=== PATIENT | female | born 1960 | race Two or more races ===

== ENCOUNTER 2022-10-17 06:32 | Inpatient (IN) | payer MEDICARE, MEDICAID ==
[~2022-10-17] VITALS: Ht 154.9 cm; Wt 89.9 kg
[2022-10-17 07:57] LABS: Albumin 1.6 g/dL (3.4-5.0); BUN/Creatinine Ratio 13.5; Calcium 8.1 mg/dL (8.5-10.1)
[2022-10-17 08:00] LABS: Bilirubin, Total 4.7 mg/dL (0.2-1.0); Total Protein 5.7 g/dL (6.4-8.2)
[2022-10-17] MEDS ORDERED: SODIUM CHLORIDE 0.9% 1,000 ML IV ONE (08:00)
[2022-10-17 08:04] LABS: Potassium 2.9 mmol/L (3.5-5.1)
[2022-10-17 08:36] LABS: Basophils # (auto) 0.1 10 ^3/uL (0-0.2); Basophils % (auto) 0.7 % (0.0-2.0); Eosinophils # (auto) 0.4 10 ^3/uL (0-0.8); Eosinophils % (auto) 4.5 % (0.0-7.0); Hematocrit 31.7 % (36.0-46.0); Hemoglobin 10.6 g/dL (12.2-16.2); Lymphocytes % (auto) 22.8 % (10.0-50.0); Mean Corpuscular Hemoglobin 32.1 pg (28.0-32.0); Mean Corpuscular Hgb Conc. 33.4 g/dL (32.0-36.0); Monocytes # (auto) 0.9 10 ^3/uL (0-1.3); Monocytes % (auto) 10.2 % (0.0-12.0); Neutrophils # (auto) 5.3 10 ^3/uL (1.6-8.6); Neutrophils % (auto) 61.8 % (37.0-80.0); Nucleated Red Blood Cells % 0.1 %; Red Cell Distribution Width 19.6 % (11.8-14.3); White Blood Cell 8.6 10^3/uL (4.4-10.8)
[2022-10-17 08:39] LABS: Magnesium 1.7 mg/dL (1.6-2.6)
[2022-10-17] MEDS ORDERED: POTASSIUM EFFERVESENT TAB 25 MEQ PO ONE (08:45)
[2022-10-17] MEDS ORDERED: ONDANSETRON HCL 4 MG/2 ML VIAL ONE (09:20)
[2022-10-17] MEDS ORDERED: ONDANSETRON HCL 4 MG/2 ML VIAL IV ONE (09:30)
[2022-10-17] MEDS ORDERED: ACETAMINOPHEN 325 MG TAB PO PRN (13:30)
[2022-10-17] MEDS ORDERED: FUROSEMIDE 20 MG/2 ML VIAL IV ONE (13:45)
[2022-10-17] MEDS: ALBUMIN 25% 100 ML IV SCH (14:07)
[2022-10-17] MEDS: SODIUM CHLOR 0.9% PF (SALINE LOCK) 10ML VIAL/SYR IV SCH (14:08)
[2022-10-17 14:20] LABS: Sodium Urine 8 mmol/L (40-220)
[2022-10-17 14:29] LABS: Alcohol, Urine < 3.0 mg/dL (0-10); Amphetamine Screen, Urine NEGATIVE (NEGATIVE); Barbiturate Scree,Urine NEGATIVE (NEGATIVE); Benzodiazephine Screen, Urine NEGATIVE (NEGATIVE); Cannabinoid Screen, Urine NEGATIVE (NEGATIVE); Cocaine Screen, Urine NEGATIVE (NEGATIVE); Creatinine, Urine 293 mg/dL (30.0-125.0); Opiate Scree,Urine POSITIVE (NEGATIVE); Phencyclidine Screen, Urine NEGATIVE (NEGATIVE)
[2022-10-17 14:34] LABS: Cholesterol 149 mg/dL (< 200)
[2022-10-17 14:35] LABS: INR 1.75 (0.9-1.15); Partial Thromboplastin Time 35.3 sec (24.6-33.4)
[2022-10-17 14:37] LABS: HDL Cholesterol 38 mg/dL (40-59); LDL Cholesterol 74 mg/dL (< 100); Triglycerides 119 mg/dL (< 150)
[2022-10-17 14:57] LABS: Urine Specific Gravity 1.019 (1.001-1.035)
[2022-10-17 14:58] LABS: Urine Blood 3+ /uL (Negative)
[2022-10-17] MEDS: FUROSEMIDE 40 MG/4 ML VIAL IV SCH (15:30)
[2022-10-17] MEDS: MIDODRINE HCL 10 MG TAB PO SCH (20:01)
[2022-10-17 22:00] VITALS: BP 92/57
[2022-10-18] MEDS ORDERED: MORP15TA PO (00:07)
[2022-10-18] MEDS ORDERED: METH10TA2 PO (00:07)
[2022-10-18] MEDS: SODIUM CHLOR 0.9% PF (SALINE LOCK) 10ML VIAL/SYR IV SCH ×4 (00:41→23:23)
[2022-10-18] MEDS: OCTREOTIDE ACETATE 100 MCG/ML VL SUBCUT SCH ×4 (00:48→23:24)
[2022-10-18] MEDS: ALBUMIN 25% 100 ML IV SCH ×2 (00:49→05:43)
[2022-10-18] MEDS: MORPHINE SULFATE INJ 2 MG/ml SYRG IV PRN (00:51)
[2022-10-18 05:00] VITALS: BP_SYST 100; BP_SYST 85; BP_SYST 99; BP_DIAS 49; BP_DIAS 53; BP_DIAS 62
[2022-10-18] MEDS: MIDODRINE HCL 10 MG TAB PO SCH ×3 (05:43→17:49)
[2022-10-18 06:32] LABS: Albumin 2.3 g/dL (3.4-5.0); BUN/Creatinine Ratio 13.1; Calcium 8.1 mg/dL (8.5-10.1); Potassium 3.4 mmol/L (3.5-5.1)
[2022-10-18 06:34] LABS: Total Protein 5.6 g/dL (6.4-8.2)
[2022-10-18 06:58] LABS: Basophils # (auto) 0 10 ^3/uL (0-0.2); Basophils % (auto) 0.5 % (0.0-2.0); Eosinophils # (auto) 0.3 10 ^3/uL (0-0.8); Eosinophils % (auto) 4.8 % (0.0-7.0); Hematocrit 25.6 % (36.0-46.0); Hemoglobin 8.8 g/dL (12.2-16.2); Lymphocytes # (auto) 1.7 10 ^3/uL (0.4-5.4); Lymphocytes % (auto) 23.9 % (10.0-50.0); Mean Corpuscular Hemoglobin 33.2 pg (28.0-32.0); Mean Corpuscular Hgb Conc. 34.3 g/dL (32.0-36.0); Mean Corpuscular Volume 96.7 fL (80.0-100.0); Monocytes # (auto) 0.9 10 ^3/uL (0-1.3); Monocytes % (auto) 12.3 % (0.0-12.0); Neutrophils # (auto) 4.1 10 ^3/uL (1.6-8.6); Neutrophils % (auto) 58.5 % (37.0-80.0); Nucleated Red Blood Cells % 0.1 %; Red Blood Cells 2.65 10^6/uL (4.0-5.20)
[2022-10-18 08:00] VITALS: BP 85/45
[2022-10-18 09:06] VITALS: BP 103/55
[2022-10-18] MEDS: PANTOPRAZOLE 40 MG/10 ML VIAL INJ IV SCH ×2 (09:48→23:23)
[2022-10-18] MEDS: FUROSEMIDE 40 MG/4 ML VIAL IV SCH ×2 (09:48→11:45)
[2022-10-18] MEDS ORDERED: ENOXAPARIN SOD 30 MG/0.3 ML SYRINGE SC SCH (10:00)
[2022-10-18] MEDS ORDERED: ALBUMIN 25% 100 ML IV ONE (10:15)
[2022-10-18 12:39] VITALS: BP 91/52
[2022-10-18] MEDS ORDERED: ERGOCALCIFEROL 50,000 UNIT(1.25MG) CAP PO SCH (12:45)
[2022-10-18] MEDS ORDERED: FOLIC ACID 1 MG TAB PO ONE (12:45)
[2022-10-18] MEDS ORDERED: MULTIPLE VITAMINS W/ MINERALS TAB PO ONE (12:45)
[2022-10-18] MEDS ORDERED: THIAMINE HCL 100 MG TAB PO ONE (12:45)
[2022-10-18 13:29] LABS: Protein, Urine 143.1 mg/dL (0.0-11.9)
[2022-10-18 14:20] LABS: Hepatitis C Antibody Negative (Negative)
[2022-10-18 14:41] LABS: Hepatitis A Ab IgM Negative; Hepatitis B Core IgM Negative
[2022-10-18 14:42] LABS: Hepatitis C Antibody Negative (Negative)
[2022-10-18 14:48] LABS: Urine Blood 3+ /uL (Negative); Urine Specific Gravity 1.013 (1.001-1.035)
[2022-10-18 14:54] LABS: Urine WBC >100 /hpf (0 - 5)
[2022-10-18 14:55] LABS: Urine Bacteria MODERATE /hpf (None Seen); Urine Ca Carbonate Crystal None Seen /hpf (None Seen)
[2022-10-18 14:56] LABS: Urine Amorphous Sediment None Seen /hpf; Urine Hyaline Cast None Seen /lpf (0 - 2)
[2022-10-18 14:57] LABS: Urine Amorphous Crystal None Seen /hpf (None Seen); Urine Budding Yeast None Seen /hpf (None Seen); Urine Fine Granular Cast None Seen /lpf; Urine Mucus None Seen (None Seen); Urine Sperm None Seen /hpf (None Seen)
[2022-10-18 16:48] VITALS: BP 89/48
[2022-10-18 22:00] VITALS: BP 93/51
[2022-10-18] MEDS ORDERED: LORazepam 2MG/ML-1ML VIAL IV PRN (23:15)
[2022-10-18] MEDS: LACTULOSE 20Gm/30ML SOLN PO SCH (23:23)
[2022-10-19] VITALS (9 sets, daily range): BP systolic 97–117; BP diastolic 47–69
[2022-10-19] MEDS: cefTRIAXone 1GM/50ML D5W 50 ML IV SCH ×2 (00:12→23:39)
[2022-10-19] MEDS: LACTULOSE 20Gm/30ML SOLN PO SCH ×6 (01:51→23:38)
[2022-10-19] MEDS: SODIUM CHLOR 0.9% PF (SALINE LOCK) 10ML VIAL/SYR IV SCH ×3 (05:43→23:40)
[2022-10-19] MEDS: MIDODRINE HCL 10 MG TAB PO SCH ×3 (05:44→18:42)
[2022-10-19 05:57] LABS: Hematocrit 24.2 % (36.0-46.0)
[2022-10-19 06:00] LABS: Hemoglobin 8.2 g/dL (12.2-16.2); Mean Corpuscular Hemoglobin 32.7 pg (28.0-32.0); Mean Corpuscular Hgb Conc. 33.9 g/dL (32.0-36.0); Mean Corpuscular Volume 96.6 fL (80.0-100.0); Red Blood Cells 2.51 10^6/uL (4.0-5.20); White Blood Cell 11.2 10^3/uL (4.4-10.8)
[2022-10-19 06:11] LABS: Calcium 8.3 mg/dL (8.5-10.1); Potassium 3.4 mmol/L (3.5-5.1)
[2022-10-19 06:17] LABS: Albumin 2.6 g/dL (3.4-5.0); BUN/Creatinine Ratio 12.2; Bilirubin, Total 6.2 mg/dL (0.2-1.0); Magnesium 1.7 mg/dL (1.6-2.6); Total Protein 5.3 g/dL (6.4-8.2)
[2022-10-19] MEDS: OCTREOTIDE ACETATE 100 MCG/ML VL SUBCUT SCH ×2 (06:21→16:29)
[2022-10-19 07:04] LABS: INR 2.1 (0.9-1.15)
[2022-10-19 07:28] LABS: Band Neutrophils % (manual) 0; Basophils % (manual) 0 (0.0-2.0); Blast Cells 0; Metamyelocytes % 0; Myelocytes % 0; Promyelocytes % 0; Reactive Lymphocytes 0
[2022-10-19] MEDS ORDERED: POTASSIUM CHL 20 Meq TABLET PO ONE (08:00)
[2022-10-19] MEDS ORDERED: PHYTONADIONE(VitK) ORAL Susp 5mg/5ml(1mg/ml) PO ONE (08:00)
[2022-10-19 11:57] LABS: Eosinophils % (manual) 7 (0-7); Lymphocytes % (manual) 26 (10.0-50.0); Monocytes % (manual) 15 (0-12)
[2022-10-19 12:46] LABS: Folate (Folic Acid) 2.39 ng/mL (5.38-24)
[2022-10-19] MEDS: FUROSEMIDE 40 MG/4 ML VIAL IV SCH (12:59)
[2022-10-19] MEDS: PANTOPRAZOLE 40 MG/10 ML VIAL INJ IV SCH ×2 (13:00→23:38)
[2022-10-19] MEDS: THIAMINE HCL 100 MG TAB PO SCH (13:00)
[2022-10-19] MEDS: MULTIPLE VITAMINS W/ MINERALS TAB PO SCH (13:00)
[2022-10-19] MEDS: FOLIC ACID 1 MG TAB PO SCH (13:00)
[2022-10-20] MEDS: OCTREOTIDE ACETATE 100 MCG/ML VL SUBCUT SCH ×6 (00:03→21:39)
[2022-10-20] MEDS: cefTRIAXone 1GM/50ML D5W 50 ML IV SCH ×2 (00:29→21:37)
[2022-10-20] MEDS: LACTULOSE 20Gm/30ML SOLN PO SCH ×7 (02:12→21:37)
[2022-10-20 05:00] VITALS: BP 108/44
[2022-10-20] MEDS: MIDODRINE HCL 10 MG TAB PO SCH ×4 (06:00→19:00)
[2022-10-20 06:15] LABS: INR 2.05 (0.9-1.15); Partial Thromboplastin Time 39.3 sec (24.6-33.4)
[2022-10-20 06:25] LABS: Potassium 3.1 mmol/L (3.5-5.1)
[2022-10-20] MEDS: SODIUM CHLOR 0.9% PF (SALINE LOCK) 10ML VIAL/SYR IV SCH ×3 (06:26→21:42)
[2022-10-20 06:38] LABS: Albumin 2.4 g/dL (3.4-5.0); BUN/Creatinine Ratio 11.2; Calcium 8.3 mg/dL (8.5-10.1); Magnesium 1.5 mg/dL (1.6-2.6)
[2022-10-20 06:41] LABS: Bilirubin, Total 5.7 mg/dL (0.2-1.0); Total Protein 4.8 g/dL (6.4-8.2)
[2022-10-20 07:01] LABS: Basophils # (auto) 0.1 10 ^3/uL (0-0.2); Monocytes # (auto) 1.3 10 ^3/uL (0-1.3); Red Blood Cells 2.46 10^6/uL (4.0-5.20)
[2022-10-20 07:03] LABS: Eosinophils # (auto) 0.5 10 ^3/uL (0-0.8); Eosinophils % (auto) 4.9 % (0.0-7.0); Hematocrit 24.1 % (36.0-46.0); Hemoglobin 8.1 g/dL (12.2-16.2); Lymphocytes # (auto) 2.6 10 ^3/uL (0.4-5.4); Lymphocytes % (auto) 25.2 % (10.0-50.0); Mean Corpuscular Hemoglobin 33.1 pg (28.0-32.0); Mean Corpuscular Hgb Conc. 33.8 g/dL (32.0-36.0); Mean Corpuscular Volume 97.9 fL (80.0-100.0); Neutrophils # (auto) 5.8 10 ^3/uL (1.6-8.6); Neutrophils % (auto) 55.9 % (37.0-80.0); Nucleated Red Blood Cells % 0.2 %; Red Cell Distribution Width 19.2 % (11.8-14.3); White Blood Cell 10.3 10^3/uL (4.4-10.8)
[2022-10-20 09:00] VITALS: BP 122/67
[2022-10-20] MEDS: MULTIPLE VITAMINS W/ MINERALS TAB PO SCH (09:51)
[2022-10-20] MEDS: PANTOPRAZOLE 40 MG/10 ML VIAL INJ IV SCH ×2 (09:51→21:37)
[2022-10-20] MEDS: FOLIC ACID 1 MG TAB PO SCH (09:51)
[2022-10-20] MEDS: THIAMINE HCL 100 MG TAB PO SCH (09:51)
[2022-10-20] MEDS: FUROSEMIDE 40 MG/4 ML VIAL IV SCH (09:51)
[2022-10-20] MEDS: SPIRONOLACTONE 25 MG TAB PO SCH (09:52)
[2022-10-20 13:00] VITALS: BP 105/55
[2022-10-20] MEDS ORDERED: POTASSIUM CHL 20 Meq TABLET PO ONE (15:00)
[2022-10-20 17:00] VITALS: BP 113/56
[2022-10-20 21:55] VITALS: BP 125/59
[2022-10-21] VITALS (9 sets, daily range): BP systolic 91–125; BP diastolic 49–75
[2022-10-21] MEDS: LACTULOSE 20Gm/30ML SOLN PO SCH ×6 (02:09→23:00)
[2022-10-21] MEDS: OCTREOTIDE ACETATE 100 MCG/ML VL SUBCUT SCH ×3 (05:42→23:02)
[2022-10-21] MEDS: MIDODRINE HCL 10 MG TAB PO SCH ×2 (05:42→12:25)
[2022-10-21] MEDS: SODIUM CHLOR 0.9% PF (SALINE LOCK) 10ML VIAL/SYR IV SCH ×3 (05:46→23:00)
[2022-10-21 06:17] LABS: INR 2.07 (0.9-1.15); Partial Thromboplastin Time 36.5 sec (24.6-33.4)
[2022-10-21 06:32] LABS: Basophils # (auto) 0.1 10 ^3/uL (0-0.2); Basophils % (auto) 1.5 % (0.0-2.0); Eosinophils # (auto) 0.5 10 ^3/uL (0-0.8); Eosinophils % (auto) 5.8 % (0.0-7.0); Hematocrit 26.1 % (36.0-46.0); Hemoglobin 8.8 g/dL (12.2-16.2); Lymphocytes # (auto) 2.7 10 ^3/uL (0.4-5.4); Lymphocytes % (auto) 28.9 % (10.0-50.0); Mean Corpuscular Hemoglobin 33.4 pg (28.0-32.0); Mean Corpuscular Hgb Conc. 33.7 g/dL (32.0-36.0); Mean Corpuscular Volume 99.1 fL (80.0-100.0); Monocytes # (auto) 1.3 10 ^3/uL (0-1.3); Monocytes % (auto) 13.4 % (0.0-12.0); Neutrophils # (auto) 4.7 10 ^3/uL (1.6-8.6); Neutrophils % (auto) 50.4 % (37.0-80.0); Nucleated Red Blood Cells % 0.2 %; Red Blood Cells 2.63 10^6/uL (4.0-5.20); Red Cell Distribution Width 19.2 % (11.8-14.3); White Blood Cell 9.4 10^3/uL (4.4-10.8)
[2022-10-21 06:56] LABS: Potassium 3.3 mmol/L (3.5-5.1)
[2022-10-21 06:58] LABS: BUN/Creatinine Ratio 11.4
[2022-10-21 07:02] LABS: Bilirubin, Total 4.9 mg/dL (0.2-1.0); Calcium 8.3 mg/dL (8.5-10.1)
[2022-10-21 07:03] LABS: Albumin 2.5 g/dL (3.4-5.0); Magnesium 1.6 mg/dL (1.6-2.6); Total Protein 5.2 g/dL (6.4-8.2)
[2022-10-21] MEDS: FUROSEMIDE 40 MG/4 ML VIAL IV SCH (10:16)
[2022-10-21] MEDS: MULTIPLE VITAMINS W/ MINERALS TAB PO SCH (10:16)
[2022-10-21] MEDS: PANTOPRAZOLE 40 MG/10 ML VIAL INJ IV SCH ×2 (10:16→23:00)
[2022-10-21] MEDS: SPIRONOLACTONE 25 MG TAB PO SCH (10:16)
[2022-10-21] MEDS: FOLIC ACID 1 MG TAB PO SCH (10:16)
[2022-10-21] MEDS: THIAMINE HCL 100 MG TAB PO SCH (10:17)
[2022-10-21] MEDS ORDERED: POTASSIUM EFFERVESENT TAB 25 MEQ PO ONE (10:45)
[2022-10-21] MEDS: MORPHINE SULFATE INJ 2 MG/ml SYRG IV PRN (11:14)
[2022-10-21] MEDS ORDERED: POTASSIUM CHL 20 Meq TABLET PO ONE (14:00)
[2022-10-21] MEDS ORDERED: PHYTONADIONE (VIT K)10 MG/ML 1ML VIAL SUBCUT ONE (14:00)
[2022-10-21] MEDS ORDERED: MAGNESIUM OXIDE 400 MG TAB PO ONE (14:00)
[2022-10-21] MEDS: cefTRIAXone 1GM/50ML D5W 50 ML IV SCH (23:00)
[2022-10-21] MEDS: MAGNESIUM OXIDE 400 MG TAB PO SCH (23:00)
[2022-10-22 00:06] VITALS: BP 98/59
[2022-10-22] MEDS: LACTULOSE 20Gm/30ML SOLN PO SCH ×6 (02:00→22:00)
[2022-10-22 04:47] VITALS: BP 96/56
[2022-10-22] MEDS: MIDODRINE HCL 10 MG TAB PO SCH ×3 (05:36→18:09)
[2022-10-22] MEDS: SODIUM CHLOR 0.9% PF (SALINE LOCK) 10ML VIAL/SYR IV SCH ×3 (05:36→22:27)
[2022-10-22] MEDS: OCTREOTIDE ACETATE 100 MCG/ML VL SUBCUT SCH ×3 (05:37→22:00)
[2022-10-22] MEDS: MORPHINE SULFATE INJ 2 MG/ml SYRG IV PRN (08:33)
[2022-10-22] MEDS: FUROSEMIDE 40 MG/4 ML VIAL IV SCH (09:50)
[2022-10-22] MEDS: SPIRONOLACTONE 25 MG TAB PO SCH (09:50)
[2022-10-22] MEDS: PANTOPRAZOLE 40 MG/10 ML VIAL INJ IV SCH ×2 (09:50→22:27)
[2022-10-22] MEDS: MAGNESIUM OXIDE 400 MG TAB PO SCH ×2 (09:51→22:27)
[2022-10-22] MEDS: MULTIPLE VITAMINS W/ MINERALS TAB PO SCH (09:51)
[2022-10-22] MEDS: THIAMINE HCL 100 MG TAB PO SCH (09:52)
[2022-10-22] MEDS: FOLIC ACID 1 MG TAB PO SCH (09:53)
[2022-10-22] MEDS ORDERED: POTASSIUM EFFERVESENT TAB 25 MEQ PO ONE (10:00)
[2022-10-22 10:33] LABS: INR 1.99 (0.9-1.15)
[2022-10-22 10:38] LABS: Basophils # (auto) 0 10 ^3/uL (0-0.2); Basophils % (auto) 0.7 % (0.0-2.0); Eosinophils # (auto) 0.5 10 ^3/uL (0-0.8); Eosinophils % (auto) 7.2 % (0.0-7.0); Hematocrit 26.7 % (36.0-46.0); Hemoglobin 9.1 g/dL (12.2-16.2); Lymphocytes # (auto) 1.3 10 ^3/uL (0.4-5.4); Lymphocytes % (auto) 19.7 % (10.0-50.0); Mean Corpuscular Hemoglobin 33.1 pg (28.0-32.0); Mean Corpuscular Volume 97.5 fL (80.0-100.0); Monocytes # (auto) 0.8 10 ^3/uL (0-1.3); Monocytes % (auto) 12.8 % (0.0-12.0); Neutrophils # (auto) 3.8 10 ^3/uL (1.6-8.6); Neutrophils % (auto) 59.6 % (37.0-80.0); Nucleated Red Blood Cells % 0.1 %; Red Blood Cells 2.74 10^6/uL (4.0-5.20); White Blood Cell 6.4 10^3/uL (4.4-10.8)
[2022-10-22 10:47] LABS: Albumin 2.3 g/dL (3.4-5.0); BUN/Creatinine Ratio 10.3; Calcium 8.4 mg/dL (8.5-10.1); Magnesium 1.7 mg/dL (1.6-2.6)
[2022-10-22 10:50] LABS: Bilirubin, Total 3.7 mg/dL (0.2-1.0); Total Protein 5.3 g/dL (6.4-8.2)
[2022-10-22 11:23] LABS: Potassium 2.9 mmol/L (3.5-5.1)
[2022-10-22] MEDS ORDERED: ONDANSETRON HCL 4 MG/2 ML VIAL IV PRN (12:45)
[2022-10-22] MEDS ORDERED: ONDANSETRON HCL 4 MG/2 ML VIAL ONE (12:57)
[2022-10-22 13:00] VITALS: BP 128/74
[2022-10-22] MEDS ORDERED: PHYTONADIONE(VitK) ORAL Susp 10mg/10ml(1mg/ml) PO ONE ×2 (13:15→15:45)
[2022-10-22] MEDS ORDERED: MAGNESIUM OXIDE 400 MG TAB PO ONE (13:15)
[2022-10-22] MEDS ORDERED: POTASSIUM CHLORIDE 40 MEQ, LIDOCAINE 1% (LOCAL ANESTH.) 4 ML in SODIUM CHL 0.9% 250 ML IV ONE ×2 (13:15→16:00)
[2022-10-22 17:00] VITALS: BP 107/58
[2022-10-22 21:42] VITALS: BP 112/59
[2022-10-22] MEDS: cefTRIAXone 1GM/50ML D5W 50 ML IV SCH (22:27)
[2022-10-23] VITALS (7 sets, daily range): BP systolic 101–117; BP diastolic 58–61
[2022-10-23] MEDS: ALBUMIN 25% 50 ML IV SCH ×2 (01:01→10:36)
[2022-10-23] MEDS: LACTULOSE 20Gm/30ML SOLN PO SCH ×5 (02:00→18:00)
[2022-10-23] MEDS: OCTREOTIDE ACETATE 100 MCG/ML VL SUBCUT SCH ×2 (06:00→14:41)
[2022-10-23] MEDS: SODIUM CHLOR 0.9% PF (SALINE LOCK) 10ML VIAL/SYR IV SCH ×2 (06:32→14:46)
[2022-10-23] MEDS: MIDODRINE HCL 10 MG TAB PO SCH ×3 (06:36→18:00)
[2022-10-23 06:47] LABS: Potassium 3.1 mmol/L (3.5-5.1)
[2022-10-23 06:52] LABS: INR 1.89 (0.9-1.15); Partial Thromboplastin Time 37.4 sec (24.6-33.4)
[2022-10-23 06:56] LABS: Albumin 2.2 g/dL (3.4-5.0); BUN/Creatinine Ratio 9.2; Calcium 7.9 mg/dL (8.5-10.1); Magnesium 1.7 mg/dL (1.6-2.6)
[2022-10-23 06:59] LABS: Bilirubin, Total 3.4 mg/dL (0.2-1.0); Total Protein 4.7 g/dL (6.4-8.2)
[2022-10-23] MEDS ORDERED: POTASSIUM CHL 20 Meq TABLET PO ONE (09:00)
[2022-10-23] MEDS: MAGNESIUM SULFATE 1GM/100ML 100 ML IV SCH ×2 (09:17→09:26)
[2022-10-23] MEDS: FUROSEMIDE 40 MG/4 ML VIAL IV SCH (09:17)
[2022-10-23] MEDS: PANTOPRAZOLE 40 MG/10 ML VIAL INJ IV SCH (09:18)
[2022-10-23] MEDS: SPIRONOLACTONE 25 MG TAB PO SCH (09:18)
[2022-10-23] MEDS: FOLIC ACID 1 MG TAB PO SCH (09:19)
[2022-10-23] MEDS: THIAMINE HCL 100 MG TAB PO SCH (09:19)
[2022-10-23] MEDS: MAGNESIUM OXIDE 400 MG TAB PO SCH (09:19)
[2022-10-23] MEDS: MULTIPLE VITAMINS W/ MINERALS TAB PO SCH (09:20)
[2022-10-23] MEDS ORDERED: MAGNESIUM OXIDE 400 MG TAB PO SCH (10:00)
[2022-10-23 10:20] LABS: Basophils # (auto) 0 10 ^3/uL (0-0.2); Basophils % (auto) 0.7 % (0.0-2.0); Eosinophils # (auto) 0.4 10 ^3/uL (0-0.8); Eosinophils % (auto) 5.1 % (0.0-7.0); Hematocrit 25.1 % (36.0-46.0); Hemoglobin 8.7 g/dL (12.2-16.2); Lymphocytes # (auto) 1.7 10 ^3/uL (0.4-5.4); Lymphocytes % (auto) 24.5 % (10.0-50.0); Mean Corpuscular Hemoglobin 33.6 pg (28.0-32.0); Mean Corpuscular Hgb Conc. 34.4 g/dL (32.0-36.0); Mean Corpuscular Volume 97.6 fL (80.0-100.0); Monocytes # (auto) 0.8 10 ^3/uL (0-1.3); Monocytes % (auto) 11.1 % (0.0-12.0); Neutrophils # (auto) 4.1 10 ^3/uL (1.6-8.6); Neutrophils % (auto) 58.6 % (37.0-80.0); Nucleated Red Blood Cells % 0.2 %; Red Blood Cells 2.58 10^6/uL (4.0-5.20); Red Cell Distribution Width 19.2 % (11.8-14.3); White Blood Cell 6.9 10^3/uL (4.4-10.8)
[2022-10-23] MEDS ORDERED: PRIMIDONE 50 MG TAB PO SCH (22:00)
== END 2022-10-23 18:35 | DRG 441 ==
LOC: ER 06:32 → OVERFLOW 13:31 → WEST WING 21:45
PROVIDERS: ADMIT Nurse Practitioner Family; ATTEND Internal Medicine
PROC: 30233K1 Transfusion of Nonautologous Frozen Plasma into Peripheral Vein, Percutaneous Approach (ICD-10-PCS; principal; 2022-10-19)
DX: K76.7 Hepatorenal syndrome (principal); E43 Unspecified severe protein-calorie malnutrition; G93.41 Metabolic encephalopathy; N17.0 Acute kidney failure with tubular necrosis; N18.4 Chronic kidney disease, stage 4 (severe); D68.4 Acquired coagulation factor deficiency; E87.20 Acidosis, unspecified; J98.11 Atelectasis; N39.0 Urinary tract infection, site not specified; K70.40 Alcoholic hepatic failure without coma; K76.82 Hepatic encephalopathy; K74.60 Unspecified cirrhosis of liver; D63.1 Anemia in chronic kidney disease; F17.210 Nicotine dependence, cigarettes, uncomplicated; E86.9 Volume depletion, unspecified; E66.01 Morbid (severe) obesity due to excess calories; Z20.822 Contact with and (suspected) exposure to COVID-19; I12.9 Hypertensive chronic kidney disease with stage 1 through stage 4 chronic kidney disease, or unspecified chronic kidney disease; G25.0 Essential tremor; I95.9 Hypotension, unspecified; R73.9 Hyperglycemia, unspecified; E55.9 Vitamin D deficiency, unspecified; E87.70 Fluid overload, unspecified; E87.6 Hypokalemia; N28.1 Cyst of kidney, acquired; M79.7 Fibromyalgia; Z82.49 Family history of ischemic heart disease and other diseases of the circulatory system; Z88.6 Allergy status to analgesic agent; Z98.84 Bariatric surgery status; Z68.38 Body mass index [BMI] 38.0-38.9, adult
CPT/HCPCS: 36415; 71045; 74176; 76705; 80053; 80061; 80074; 80307; 81001; 81003; 82105; 82140; 82248; 82306; 82570; 82607; 82746; 83036; 83540; 83550; 83605; 83615; 83690; 83735; 83880; 83930; 83935; 83986; 84155; 84156; 84165; 84300; 84443; 84484; 85007; 85025; 85027; 85045; 85610; 85730; 86803; 86850; 86900; 86901; 87205; 87340; 87426; 89051; 93005; 93306; 93886; 93970; 95819; 96361; 96365; 96375; 97110; 97116; 97163; 97530; C9113; G0378; J0696; J2001; J2405; J3430; P9047

== ENCOUNTER 2022-10-26 09:45 | Emergency (ER) | payer MEDICARE, MEDICAID ==
[~2022-10-26] VITALS: Ht 160 cm; Wt 84.1 kg
[~2022-10-26 09:45] MED LIST: METH10TA2 PO; MORP15TA PO
[2022-10-26] MEDS ORDERED: PIPERACILLIN-TAZOB 3.375GM 100 ML IV ONE (15:00)
[2022-10-26] MEDS ORDERED: LIDOCAINE 1% HCL (LOCAL ANESTH.) INJ 20ML MDV ID ONE (15:15)
[2022-10-26 15:57] VITALS: BP 104/49
== END 2022-10-26 15:57 | disposition home or self-care (01) ==
LOC: EDBD 09:45 → ER 09:45
DX: R10.9 Unspecified abdominal pain (principal); I10 Essential (primary) hypertension; F17.210 Nicotine dependence, cigarettes, uncomplicated; Z48.00 Encounter for change or removal of nonsurgical wound dressing; Z88.6 Allergy status to analgesic agent
CPT/HCPCS: 96365; 99284; J2001; J2543

== ENCOUNTER 2022-10-30 10:27 | Inpatient (IN) | payer MEDICARE, MEDICAID ==
[~2022-10-30] VITALS: Ht 157.5 cm; Wt 100.2 kg
[2022-10-30 11:55] LABS: Basophils # (auto) 0.1 10 ^3/uL (0-0.2); Basophils % (auto) 0.6 % (0.0-2.0); Eosinophils # (auto) 0.5 10 ^3/uL (0-0.8); Hemoglobin 9.8 g/dL (12.2-16.2); Lymphocytes # (auto) 1.9 10 ^3/uL (0.4-5.4); Lymphocytes % (auto) 18.4 % (10.0-50.0); Mean Corpuscular Hemoglobin 32.8 pg (28.0-32.0); Mean Corpuscular Hgb Conc. 32.7 g/dL (32.0-36.0); Mean Corpuscular Volume 100.1 fL (80.0-100.0); Monocytes % (auto) 9.4 % (0.0-12.0); Neutrophils % (auto) 66.6 % (37.0-80.0); Nucleated Red Blood Cells % 0.2 %; Red Blood Cells 2.99 10^6/uL (4.0-5.20); Red Cell Distribution Width 17.8 % (11.8-14.3); White Blood Cell 10.5 10^3/uL (4.4-10.8)
[2022-10-30 12:10] LABS: Albumin 2.2 g/dL (3.4-5.0); Calcium 8.1 mg/dL (8.5-10.1); Potassium 3.5 mmol/L (3.5-5.1)
[2022-10-30 12:12] LABS: BUN/Creatinine Ratio 10.4; Lactic Acid w/Reflex 2.3 mmol/L (0.4-2.0)
[2022-10-30 12:15] LABS: Bilirubin, Total 5.5 mg/dL (0.2-1.0); Total Protein 5.6 g/dL (6.4-8.2)
[2022-10-30 12:17] LABS: INR 1.56 (0.9-1.15); Partial Thromboplastin Time 34.2 sec (24.6-33.4)
[2022-10-30] MEDS ORDERED: LACTULOSE 20Gm/30ML SOLN PO ONE (12:30)
[2022-10-30] MEDS ORDERED: FUROSEMIDE 40 MG/4 ML VIAL IV ONE (15:15)
[2022-10-31] MEDS: LACTULOSE 20Gm/30ML SOLN PO SCH ×5 (01:11→22:18)
[2022-10-31] MEDS: SODIUM CHLOR 0.9% PF (SALINE LOCK) 10ML VIAL/SYR IV SCH ×4 (01:11→22:12)
[2022-10-31 06:24] LABS: Hematocrit 23.3 % (36.0-46.0); Hemoglobin 8.2 g/dL (12.2-16.2); Mean Corpuscular Hemoglobin 34.5 pg (28.0-32.0); Mean Corpuscular Hgb Conc. 35.1 g/dL (32.0-36.0); Mean Corpuscular Volume 98.3 fL (80.0-100.0); Red Blood Cells 2.37 10^6/uL (4.0-5.20); Red Cell Distribution Width 17.4 % (11.8-14.3); White Blood Cell 12.9 10^3/uL (4.4-10.8)
[2022-10-31 06:35] LABS: Basophils % (manual) 0 (0.0-2.0); Blast Cells 0; Metamyelocytes % 0; Promyelocytes % 0; Reactive Lymphocytes 0
[2022-10-31 07:18] LABS: BUN/Creatinine Ratio 10.9; Bilirubin, Total 5.1 mg/dL (0.2-1.0); Calcium 7.8 mg/dL (8.5-10.1); Total Protein 4.9 g/dL (6.4-8.2)
[2022-10-31 09:39] LABS: Band Neutrophils % (manual) 11; Eosinophils % (manual) 5 (0-7); Lymphocytes % (manual) 22 (10.0-50.0); Monocytes % (manual) 14 (0-12); Myelocytes % 1
[2022-10-31] MEDS ORDERED: FUROSEMIDE 20 MG/2 ML VIAL IV SCH (10:00)
[2022-10-31 11:42] LABS: Urine Bacteria NONE SEEN /hpf (None Seen); Urine Blood 3+ /uL (Negative); Urine Budding Yeast MANY /hpf (None Seen); Urine Hyaline Cast MANY /lpf (0 - 2); Urine Mucus FEW (None Seen); Urine Specific Gravity 1.013 (1.001-1.035); Urine WBC 129 /hpf (0 - 5); Urine WBC Clumps PRESENT /hpf (None Seen)
[2022-10-31] MEDS ORDERED: MIDODRINE HCL 10 MG TAB PO ONE (14:15)
[2022-10-31] MEDS ORDERED: cefTRIAXone 1GM/50ML D5W 50 ML IV ONE (14:15)
[2022-10-31] MEDS ORDERED: PANTOPRAZOLE 40 MG TAB PO ONE (14:15)
[2022-10-31] MEDS ORDERED: ALBUMIN 25% 50 ML IV ONE (14:15)
[2022-10-31] MEDS ORDERED: FUROSEMIDE 40 MG/4 ML VIAL IV ONE (14:15)
[2022-10-31] MEDS: MIDODRINE HCL 10 MG TAB PO SCH (18:06)
[2022-10-31] MEDS ORDERED: FOLI1TAB6 PO (23:36)
[2022-10-31 23:46] VITALS: BP 107/36
[2022-11-01] VITALS (8 sets, daily range): BP systolic 76–112; BP diastolic 29–53
[2022-11-01] MEDS: LACTULOSE 20Gm/30ML SOLN PO SCH ×3 (06:16→22:09)
[2022-11-01] MEDS: MIDODRINE HCL 10 MG TAB PO SCH ×3 (06:16→17:53)
[2022-11-01] MEDS: SODIUM CHLOR 0.9% PF (SALINE LOCK) 10ML VIAL/SYR IV SCH ×3 (06:16→22:08)
[2022-11-01 06:32] LABS: Hematocrit 20.2 % (36.0-46.0); Mean Corpuscular Hemoglobin 34.1 pg (28.0-32.0); Mean Corpuscular Hgb Conc. 34.6 g/dL (32.0-36.0); Mean Corpuscular Volume 98.6 fL (80.0-100.0); Red Blood Cells 2.05 10^6/uL (4.0-5.20); White Blood Cell 8.6 10^3/uL (4.4-10.8)
[2022-11-01 06:49] LABS: Band Neutrophils % (manual) 0; Basophils % (manual) 0 (0.0-2.0); Blast Cells 0; Metamyelocytes % 0; Myelocytes % 0; Promyelocytes % 0; Reactive Lymphocytes 0
[2022-11-01 06:50] LABS: Potassium 3.6 mmol/L (3.5-5.1)
[2022-11-01 06:57] LABS: BUN/Creatinine Ratio 10.4; Bilirubin, Total 3.6 mg/dL (0.2-1.0); Calcium 7.6 mg/dL (8.5-10.1); Total Protein 4.2 g/dL (6.4-8.2)
[2022-11-01] MEDS: cefTRIAXone 1GM/50ML D5W 50 ML IV SCH (08:44)
[2022-11-01] MEDS: FUROSEMIDE 20 MG/2 ML VIAL IV SCH (09:20)
[2022-11-01] MEDS: PANTOPRAZOLE 40 MG TAB PO SCH (09:20)
[2022-11-01 09:42] LABS: Hepatitis B Surface Antibody Negative (Negative)
[2022-11-01 12:10] LABS: Eosinophils % (manual) 8 (0-7); Lymphocytes % (manual) 12 (10.0-50.0); Monocytes % (manual) 13 (0-12)
[2022-11-01 13:51] LABS: Hepatitis C Antibody Negative (Negative)
[2022-11-01] MEDS: OCTREOTIDE ACETATE 100 MCG/ML VL SUBCUT SCH ×2 (14:16→22:09)
[2022-11-02 05:00] VITALS: BP 79/48
[2022-11-02 05:45] LABS: Basophils # (auto) 0.1 10 ^3/uL (0-0.2); Basophils % (auto) 0.7 % (0.0-2.0); Eosinophils # (auto) 0.6 10 ^3/uL (0-0.8); Eosinophils % (auto) 7.3 % (0.0-7.0); Hemoglobin 9.1 g/dL (12.2-16.2); Mean Corpuscular Hemoglobin 32.5 pg (28.0-32.0); Mean Corpuscular Hgb Conc. 33.6 g/dL (32.0-36.0); Mean Corpuscular Volume 96.6 fL (80.0-100.0); Monocytes # (auto) 0.9 10 ^3/uL (0-1.3); Monocytes % (auto) 11.6 % (0.0-12.0); Neutrophils # (auto) 4.4 10 ^3/uL (1.6-8.6); Neutrophils % (auto) 55.4 % (37.0-80.0); Nucleated Red Blood Cells % 0.1 %; Red Cell Distribution Width 17.8 % (11.8-14.3); White Blood Cell 7.9 10^3/uL (4.4-10.8)
[2022-11-02 05:55] LABS: BUN/Creatinine Ratio 10.7; Potassium 4.2 mmol/L (3.5-5.1)
[2022-11-02] MEDS: LACTULOSE 20Gm/30ML SOLN PO SCH ×2 (05:55→14:00)
[2022-11-02] MEDS: SODIUM CHLOR 0.9% PF (SALINE LOCK) 10ML VIAL/SYR IV SCH ×2 (05:55→14:00)
[2022-11-02] MEDS: OCTREOTIDE ACETATE 100 MCG/ML VL SUBCUT SCH ×2 (05:56→14:00)
[2022-11-02] MEDS: MIDODRINE HCL 10 MG TAB PO SCH ×3 (05:56→18:00)
[2022-11-02 09:00] VITALS: BP 88/43
[2022-11-02] MEDS: cefTRIAXone 1GM/50ML D5W 50 ML IV SCH (09:00)
[2022-11-02] MEDS: FUROSEMIDE 20 MG/2 ML VIAL IV SCH (09:50)
[2022-11-02] MEDS: PANTOPRAZOLE 40 MG TAB PO SCH (09:50)
[2022-11-02 13:00] VITALS: BP 84/49
[2022-11-02 16:44] VITALS: BP 97/42
[2022-11-02 17:11] VITALS: BP 88/43
== END 2022-11-02 18:45 | DRG 441 ==
LOC: ER 10:27 → OVERFLOW 15:04 → WEST WING 10-31 22:42
PROVIDERS: ADMIT Nurse Practitioner Family; ATTEND Internal Medicine
PROC: 30233N1 Transfusion of Nonautologous Red Blood Cells into Peripheral Vein, Percutaneous Approach (ICD-10-PCS; principal; 2022-11-01)
DX: K76.82 Hepatic encephalopathy (principal); K76.7 Hepatorenal syndrome; E44.0 Moderate protein-calorie malnutrition; E87.1 Hypo-osmolality and hyponatremia; Z68.41 Body mass index [BMI] 40.0-44.9, adult; N39.0 Urinary tract infection, site not specified; D64.9 Anemia, unspecified; E66.01 Morbid (severe) obesity due to excess calories; Z20.822 Contact with and (suspected) exposure to COVID-19; E87.70 Fluid overload, unspecified; F10.10 Alcohol abuse, uncomplicated; I12.9 Hypertensive chronic kidney disease with stage 1 through stage 4 chronic kidney disease, or unspecified chronic kidney disease; F17.210 Nicotine dependence, cigarettes, uncomplicated; K70.31 Alcoholic cirrhosis of liver with ascites; N18.30 Chronic kidney disease, stage 3 unspecified; Z98.84 Bariatric surgery status; Z88.6 Allergy status to analgesic agent
CPT/HCPCS: 36415; 70450; 71045; 74176; 80048; 80053; 81001; 82140; 82962; 83605; 84484; 85007; 85025; 85027; 85610; 85730; 86706; 86803; 86850; 86900; 86901; 86920; 87040; 87081; 87086; 87426; G0378; J0696

== ENCOUNTER 2022-11-30 11:23 | Inpatient (IN) | payer MEDICARE, MEDICAID ==
[~2022-11-30] VITALS: Ht 157.5 cm; Wt 93.8 kg
[~2022-11-30 11:23] MED LIST changes: +FOLI1TAB6 PO
[2022-11-30 14:03] LABS: Basophils # (auto) 0 10 ^3/uL (0-0.2); Basophils % (auto) 0.2 % (0.0-2.0); Eosinophils # (auto) 0.3 10 ^3/uL (0-0.8); Eosinophils % (auto) 3.8 % (0.0-7.0); Hematocrit 25.6 % (36.0-46.0); Hemoglobin 8.7 g/dL (12.2-16.2); Lymphocytes # (auto) 1.1 10 ^3/uL (0.4-5.4); Lymphocytes % (auto) 16.2 % (10.0-50.0); Mean Corpuscular Hgb Conc. 33.8 g/dL (32.0-36.0); Mean Corpuscular Volume 100.6 fL (80.0-100.0); Monocytes # (auto) 0.6 10 ^3/uL (0-1.3); Monocytes % (auto) 9.2 % (0.0-12.0); Neutrophils # (auto) 4.6 10 ^3/uL (1.6-8.6); Neutrophils % (auto) 70.6 % (37.0-80.0); Nucleated Red Blood Cells % 0.1 %; Red Blood Cells 2.55 10^6/uL (4.0-5.20); White Blood Cell 6.6 10^3/uL (4.4-10.8)
[2022-11-30 14:29] LABS: Albumin 2.1 g/dL (3.4-5.0); Calcium 7.9 mg/dL (8.5-10.1)
[2022-11-30 14:34] LABS: BUN/Creatinine Ratio 9.6; Bilirubin, Total 5.2 mg/dL (0.2-1.0); Total Protein 5.6 g/dL (6.4-8.2)
[2022-11-30 15:01] LABS: INR 1.7 (0.9-1.15); Partial Thromboplastin Time 33.3 sec (24.6-33.4)
[2022-11-30] MEDS ORDERED: POTASSIUM EFFERVESENT TAB 25 MEQ PO ONE (16:00)
[2022-11-30] MEDS ORDERED: PANTOPRAZOLE 40 MG/10 ML VIAL INJ IV ONE (17:30)
[2022-11-30] MEDS ORDERED: FUROSEMIDE 40 MG/4 ML VIAL IV ONE (17:30)
[2022-11-30 17:55] LABS: Urine Bacteria NONE SEEN /hpf (None Seen); Urine Blood 3+ /uL (Negative); Urine Hyaline Cast FEW /lpf (0 - 2); Urine Specific Gravity 1.012 (1.001-1.035); Urine WBC 23 /hpf (0 - 5)
[2022-12-01 00:33] VITALS: BP 110/53
[2022-12-01 05:00] VITALS: BP 157/58
[2022-12-01 09:00] VITALS: BP 99/54
[2022-12-01] MEDS: FOLIC ACID 1 MG TAB PO SCH (09:53)
[2022-12-01] MEDS: FUROSEMIDE 20 MG/2 ML VIAL IV SCH (09:53)
[2022-12-01] MEDS: METHADONE HCL 10 MG TAB PO SCH (09:53)
[2022-12-01] MEDS: PANTOPRAZOLE 40 MG/10 ML VIAL INJ IV SCH (09:53)
[2022-12-01 10:04] LABS: Albumin 1.9 g/dL (3.4-5.0); Calcium 7.6 mg/dL (8.5-10.1)
[2022-12-01 10:07] LABS: BUN/Creatinine Ratio 8.9; Bilirubin, Total 4.7 mg/dL (0.2-1.0)
[2022-12-01 10:10] LABS: Eosinophils # (auto) 0.5 10 ^3/uL (0-0.8); Hematocrit 23.2 % (36.0-46.0)
[2022-12-01 10:12] LABS: Basophils # (auto) 0.1 10 ^3/uL (0-0.2); Basophils % (auto) 0.9 % (0.0-2.0); Eosinophils % (auto) 7.9 % (0.0-7.0); Hemoglobin 7.8 g/dL (12.2-16.2); Lymphocytes # (auto) 1.2 10 ^3/uL (0.4-5.4); Lymphocytes % (auto) 19.3 % (10.0-50.0); Mean Corpuscular Hemoglobin 33.3 pg (28.0-32.0); Mean Corpuscular Hgb Conc. 33.7 g/dL (32.0-36.0); Mean Corpuscular Volume 98.8 fL (80.0-100.0); Monocytes # (auto) 0.6 10 ^3/uL (0-1.3); Monocytes % (auto) 10.2 % (0.0-12.0); Neutrophils # (auto) 3.8 10 ^3/uL (1.6-8.6); Neutrophils % (auto) 61.7 % (37.0-80.0); Nucleated Red Blood Cells % 0.2 %; Red Blood Cells 2.35 10^6/uL (4.0-5.20); Red Cell Distribution Width 18.3 % (11.8-14.3); White Blood Cell 6.2 10^3/uL (4.4-10.8)
[2022-12-01 12:45] VITALS: BP 102/41
[2022-12-01] MEDS ORDERED: cefTRIAXone 1GM/50ML D5W 50 ML IV ONE (13:45)
[2022-12-01] MEDS ORDERED: SODIUM CHLORIDE 0.9% 1,000 ML IV SCH (14:00)
[2022-12-01 16:33] VITALS: BP 114/60
[2022-12-01] MEDS: SODIUM CHLORIDE 0.9% 1,000 ML IV SCH (17:08)
[2022-12-01] MEDS: POTASSIUM CHL 20MEQ/100ML 100 ML IV SCH ×2 (17:08→17:47)
[2022-12-01] MEDS: LACTULOSE 20Gm/30ML SOLN PO SCH (17:47)
[2022-12-01 22:00] VITALS: BP 110/70
[2022-12-02] MEDS: LACTULOSE 20Gm/30ML SOLN PO SCH ×5 (01:07→23:41)
[2022-12-02] MEDS: SODIUM CHLORIDE 0.9% 1,000 ML IV SCH ×2 (03:35→16:55)
[2022-12-02 05:00] VITALS: BP 114/58
[2022-12-02 09:00] VITALS: BP 126/65
[2022-12-02] MEDS: cefTRIAXone 1GM/50ML D5W 50 ML IV SCH (09:00)
[2022-12-02] MEDS: PANTOPRAZOLE 40 MG/10 ML VIAL INJ IV SCH (10:00)
[2022-12-02] MEDS: FUROSEMIDE 20 MG/2 ML VIAL IV SCH (10:00)
[2022-12-02] MEDS: FOLIC ACID 1 MG TAB PO SCH (11:57)
[2022-12-02] MEDS: METHADONE HCL 10 MG TAB PO SCH (11:58)
[2022-12-02 17:00] VITALS: BP 114/67
[2022-12-02 22:00] VITALS: BP 128/70
[2022-12-03 05:00] VITALS: BP 127/67
[2022-12-03] MEDS: SODIUM CHLORIDE 0.9% 1,000 ML IV SCH ×2 (06:15→17:01)
[2022-12-03] MEDS: LACTULOSE 20Gm/30ML SOLN PO SCH ×3 (06:23→17:30)
[2022-12-03 09:03] VITALS: BP 118/61
[2022-12-03] MEDS: cefTRIAXone 1GM/50ML D5W 50 ML IV SCH (11:22)
[2022-12-03] MEDS: METHADONE HCL 10 MG TAB PO SCH (11:24)
[2022-12-03] MEDS: FUROSEMIDE 20 MG/2 ML VIAL IV SCH (11:24)
[2022-12-03] MEDS: FOLIC ACID 1 MG TAB PO SCH (11:24)
[2022-12-03] MEDS: PANTOPRAZOLE 40 MG/10 ML VIAL INJ IV SCH (11:24)
[2022-12-03 13:03] VITALS: BP 128/64
[2022-12-03 16:36] VITALS: BP 105/58
[2022-12-03] MEDS: traMADol HCL 50 MG TAB PO PRN (17:14)
[2022-12-03 21:37] LABS: INR 1.92 (0.9-1.15)
[2022-12-03 22:00] VITALS: BP 111/65
[2022-12-04] MEDS: LACTULOSE 20Gm/30ML SOLN PO SCH ×3 (00:27→12:00)
[2022-12-04 05:00] VITALS: BP 118/67
[2022-12-04] MEDS: traMADol HCL 50 MG TAB PO PRN ×2 (06:14→14:54)
[2022-12-04] MEDS: SODIUM CHLORIDE 0.9% 1,000 ML IV SCH (06:14)
[2022-12-04 09:16] VITALS: BP 119/68
[2022-12-04 09:40] LABS: Hematocrit 24.2 % (36.0-46.0); Monocytes # (auto) 0.9 10 ^3/uL (0-1.3)
[2022-12-04 09:41] LABS: Basophils # (auto) 0.1 10 ^3/uL (0-0.2); Basophils % (auto) 0.7 % (0.0-2.0); Eosinophils # (auto) 0.8 10 ^3/uL (0-0.8); Hemoglobin 7.8 g/dL (12.2-16.2); Lymphocytes # (auto) 1.3 10 ^3/uL (0.4-5.4); Mean Corpuscular Hemoglobin 33.3 pg (28.0-32.0); Mean Corpuscular Hgb Conc. 32.4 g/dL (32.0-36.0); Mean Corpuscular Volume 102.6 fL (80.0-100.0); Neutrophils % (auto) 56.3 % (37.0-80.0); Nucleated Red Blood Cells % 0.1 %; Red Blood Cells 2.36 10^6/uL (4.0-5.20); Red Cell Distribution Width 18.4 % (11.8-14.3)
[2022-12-04 10:14] LABS: Calcium 8.1 mg/dL (8.5-10.1)
[2022-12-04 10:17] LABS: BUN/Creatinine Ratio 6.4; Bilirubin, Total 4.8 mg/dL (0.2-1.0); Total Protein 5.3 g/dL (6.4-8.2)
[2022-12-04 11:33] LABS: Potassium 2.8 mmol/L (3.5-5.1)
[2022-12-04] MEDS ORDERED: POTASSIUM EFFERVESENT TAB 25 MEQ PO ONE ×2 (11:45→14:00)
[2022-12-04] MEDS: PANTOPRAZOLE 40 MG/10 ML VIAL INJ IV SCH (12:00)
[2022-12-04] MEDS: FOLIC ACID 1 MG TAB PO SCH (12:00)
[2022-12-04] MEDS: FUROSEMIDE 20 MG/2 ML VIAL IV SCH (12:00)
[2022-12-04] MEDS: METHADONE HCL 10 MG TAB PO SCH (12:00)
[2022-12-04] MEDS: cefTRIAXone 1GM/50ML D5W 50 ML IV SCH (12:00)
[2022-12-04 13:00] VITALS: BP 112/71
[2022-12-04 15:20] VITALS: BP 112/71
== END 2022-12-04 16:40 | DRG 871 ==
LOC: ER 11:23 → EDBD 11:23 → EDUNIT# 11:23 → OVERFLOW 17:16 → CENTRAL 22:10
PROVIDERS: ADMIT Nurse Practitioner Family; ATTEND Family Medicine
PROC: 0W9G3ZZ Drainage of Peritoneal Cavity, Percutaneous Approach (ICD-10-PCS; principal; 2022-12-03)
DX: A41.9 Sepsis, unspecified organism (principal); E43 Unspecified severe protein-calorie malnutrition; N39.0 Urinary tract infection, site not specified; K70.31 Alcoholic cirrhosis of liver with ascites; D63.8 Anemia in other chronic diseases classified elsewhere; E66.01 Morbid (severe) obesity due to excess calories; I10 Essential (primary) hypertension; E83.51 Hypocalcemia; E87.6 Hypokalemia; Z68.37 Body mass index [BMI] 37.0-37.9, adult; Z88.6 Allergy status to analgesic agent; Z88.8 Allergy status to other drugs, medicaments and biological substances
CPT/HCPCS: 36415; 74176; 76705; 76942; 80053; 81001; 82140; 83735; 83986; 84132; 85025; 85610; 85730; 87040; 87086; 87088; 87186; 87205; 87426; 89051; 96374; 97110; 97116; 97163; 97530; C9113; G0378; J0696; J3480

== ENCOUNTER 2022-12-21 11:33 | Inpatient (IN) | payer MEDICARE, MEDICAID ==
[~2022-12-21] VITALS: Ht 157.5 cm; Wt 98.1 kg
[2022-12-21 12:13] LABS: Hematocrit 18.7 % (36.0-46.0); Neutrophils # (auto) 5.2 10 ^3/uL (1.6-8.6)
[2022-12-21 12:15] LABS: Basophils # (auto) 0 10 ^3/uL (0-0.2); Basophils % (auto) 0.5 % (0.0-2.0); Eosinophils # (auto) 0.5 10 ^3/uL (0-0.8); Lymphocytes # (auto) 1.4 10 ^3/uL (0.4-5.4); Lymphocytes % (auto) 17.7 % (10.0-50.0); Mean Corpuscular Hemoglobin 33.9 pg (28.0-32.0); Mean Corpuscular Hgb Conc. 34.1 g/dL (32.0-36.0); Mean Corpuscular Volume 99.2 fL (80.0-100.0); Monocytes # (auto) 0.9 10 ^3/uL (0-1.3); Monocytes % (auto) 11.2 % (0.0-12.0); Neutrophils % (auto) 64.6 % (37.0-80.0); Nucleated Red Blood Cells % 0.2 %; Red Blood Cells 1.88 10^6/uL (4.0-5.20); Red Cell Distribution Width 17.6 % (11.8-14.3); White Blood Cell 8.1 10^3/uL (4.4-10.8)
[2022-12-21 12:22] LABS: INR 1.64 (0.9-1.15); Partial Thromboplastin Time 37.1 sec (24.6-33.4)
[2022-12-21 12:35] LABS: Hemoglobin 6.4 g/dL (12.2-16.2)
[2022-12-21 12:36] LABS: Albumin 1.9 g/dL (3.4-5.0); BUN/Creatinine Ratio 12.4; Bilirubin, Total 4.7 mg/dL (0.2-1.0); Calcium 7.9 mg/dL (8.5-10.1); Potassium 4.9 mmol/L (3.5-5.1); Total Protein 4.9 g/dL (6.4-8.2)
[2022-12-21 14:27] LABS: Urine Bacteria FEW /hpf (None Seen); Urine Blood 3+ /uL (Negative); Urine Budding Yeast OCCASIONAL /hpf (None Seen); Urine Hyaline Cast FEW /lpf (0 - 2); Urine Mucus FEW (None Seen); Urine Specific Gravity 1.015 (1.001-1.035); Urine WBC 65 /hpf (0 - 5); Urine WBC Clumps PRESENT /hpf (None Seen)
[2022-12-21] MEDS ORDERED: PANTOPRAZOLE 40 MG/10 ML VIAL INJ IV ONE (14:30)
[2022-12-21] MEDS: FUROSEMIDE 20 MG/2 ML VIAL IV ONE ×2 (15:00→15:48)
[2022-12-21] MEDS ORDERED: cefTRIAXone 1GM/50ML D5W 50 ML IV ONE (15:00)
[2022-12-21 15:05] VITALS: BP 79/36
[2022-12-21 15:20] VITALS: BP 77/42
[2022-12-21 15:45] VITALS: BP 78/42
[2022-12-21 16:05] VITALS: BP 88/38
[2022-12-21 16:20] VITALS: BP 89/46
[2022-12-21] MEDS ORDERED: MORPHINE SULFATE INJ 2 MG/ml SYRG IV PRN (19:15)
[2022-12-21 22:46] LABS: Hematocrit 20.3 % (36.0-46.0)
[2022-12-21 23:30] VITALS: BP 93/49
[2022-12-22] VITALS (10 sets, daily range): BP systolic 85–105; BP diastolic 48–60
[2022-12-22] MEDS: FOLIC ACID 1 MG TAB PO SCH (09:51)
[2022-12-22] MEDS: FUROSEMIDE 20 MG/2 ML VIAL IV SCH (09:52)
[2022-12-22] MEDS: PANTOPRAZOLE 40 MG/10 ML VIAL INJ IV SCH (09:52)
[2022-12-22] MEDS ORDERED: METHADONE HCL 10 MG TAB PO SCH (10:00)
[2022-12-22 12:10] LABS: Hematocrit 25.7 % (36.0-46.0); Hemoglobin 8.8 g/dL (12.2-16.2); Mean Corpuscular Hemoglobin 32.2 pg (28.0-32.0); Mean Corpuscular Hgb Conc. 34.2 g/dL (32.0-36.0); Mean Corpuscular Volume 94.2 fL (80.0-100.0); Red Blood Cells 2.73 10^6/uL (4.0-5.20); Red Cell Distribution Width 19.3 % (11.8-14.3); White Blood Cell 8.2 10^3/uL (4.4-10.8)
[2022-12-22 12:29] LABS: Albumin 1.9 g/dL (3.4-5.0); Calcium 7.9 mg/dL (8.5-10.1); Potassium 4.6 mmol/L (3.5-5.1)
[2022-12-22 12:33] LABS: BUN/Creatinine Ratio 13.3; Bilirubin, Total 5.4 mg/dL (0.2-1.0); Total Protein 4.8 g/dL (6.4-8.2)
[2022-12-22 12:37] LABS: Basophils % (manual) 0 (0.0-2.0); Blast Cells 0; Metamyelocytes % 0; Myelocytes % 0; Promyelocytes % 0; Reactive Lymphocytes 0
[2022-12-22 13:15] LABS: Band Neutrophils % (manual) 8; Eosinophils % (manual) 3 (0-7); Lymphocytes % (manual) 10 (10.0-50.0); Monocytes % (manual) 13 (0-12)
[2022-12-23 05:00] VITALS: BP 102/57
[2022-12-23 07:10] LABS: Hematocrit 22.8 % (36.0-46.0)
[2022-12-23 07:12] LABS: Mean Corpuscular Hemoglobin 32.8 pg (28.0-32.0); Mean Corpuscular Volume 93.8 fL (80.0-100.0); Red Blood Cells 2.43 10^6/uL (4.0-5.20); Red Cell Distribution Width 19.1 % (11.8-14.3)
[2022-12-23 07:25] LABS: BUN/Creatinine Ratio 13.6; Phosphorus 3.5 mg/dL (2.5-4.90); Potassium 4.4 mmol/L (3.5-5.1)
[2022-12-23 07:37] LABS: Basophils % (manual) 0 (0.0-2.0); Blast Cells 0; Metamyelocytes % 0; Myelocytes % 0; Promyelocytes % 0; Reactive Lymphocytes 0
[2022-12-23 09:00] VITALS: BP 82/49
[2022-12-23 09:09] LABS: Band Neutrophils % (manual) 6; Eosinophils % (manual) 7 (0-7); Lymphocytes % (manual) 26 (10.0-50.0); Monocytes % (manual) 11 (0-12)
[2022-12-23] MEDS: FUROSEMIDE 20 MG/2 ML VIAL IV SCH (10:00)
[2022-12-23] MEDS: FOLIC ACID 1 MG TAB PO SCH (10:06)
[2022-12-23] MEDS: PANTOPRAZOLE 40 MG/10 ML VIAL INJ IV SCH (10:06)
[2022-12-23 13:00] VITALS: BP 99/59
[2022-12-23 16:32] VITALS: BP 95/56
[2022-12-23 22:00] VITALS: BP 94/53
[2022-12-24 03:44] LABS: Urine Blood 3+ /uL (Negative)
[2022-12-24 03:49] LABS: Creatinine, Urine 88 mg/dL (30.0-125.0); Sodium Urine < 5 mmol/L (40-220)
[2022-12-24 04:03] LABS: Urine Bacteria MODERATE /hpf (None Seen); Urine WBC 45 /hpf (0 - 5); Urine WBC Clumps PRESENT /hpf (None Seen)
[2022-12-24 05:00] VITALS: BP 92/50
[2022-12-24 09:00] VITALS: BP 92/57
[2022-12-24 09:35] LABS: Folate (Folic Acid) > 24.00 ng/mL (5.38-24)
[2022-12-24] MEDS: PANTOPRAZOLE 40 MG/10 ML VIAL INJ IV SCH (09:37)
[2022-12-24] MEDS: FOLIC ACID 1 MG TAB PO SCH (09:37)
[2022-12-24] MEDS: FUROSEMIDE 20 MG/2 ML VIAL IV SCH (09:41)
[2022-12-24 13:00] VITALS: BP 101/62
[2022-12-24] MEDS: ALBUMIN 25% 50 ML IV SCH ×2 (16:09→23:28)
[2022-12-24 17:00] VITALS: BP 98/50
[2022-12-24] MEDS: MIDODRINE HCL 10 MG TAB PO SCH (18:09)
[2022-12-24 22:00] VITALS: BP 85/41
[2022-12-25 05:00] VITALS: BP 88/43
[2022-12-25] MEDS: MIDODRINE HCL 10 MG TAB PO SCH ×4 (05:48→17:40)
[2022-12-25 06:05] LABS: White Blood Cell 5.6 10^3/uL (4.4-10.8)
[2022-12-25 06:08] LABS: Hematocrit 21.1 % (36.0-46.0); Hemoglobin 7.5 g/dL (12.2-16.2); Mean Corpuscular Hemoglobin 34.2 pg (28.0-32.0); Mean Corpuscular Hgb Conc. 35.4 g/dL (32.0-36.0); Mean Corpuscular Volume 96.6 fL (80.0-100.0); Red Blood Cells 2.19 10^6/uL (4.0-5.20); Red Cell Distribution Width 19.6 % (11.8-14.3)
[2022-12-25 06:10] LABS: INR 1.75 (0.9-1.15)
[2022-12-25 06:18] LABS: Basophils % (manual) 0 (0.0-2.0); Blast Cells 0; Calcium 8.2 mg/dL (8.5-10.1); Myelocytes % 0; Promyelocytes % 0; Reactive Lymphocytes 0
[2022-12-25 06:21] LABS: BUN/Creatinine Ratio 14.8
[2022-12-25] MEDS ORDERED: LIDOCAINE VISCOUS 2% 15ML UD ONE (06:57)
[2022-12-25] MEDS ORDERED: FLUMAZENIL 0.1 MG/ML INJ 10ML MDV IV ONE (06:57)
[2022-12-25] MEDS ORDERED: NALOXONE HCL 0.4 MG/ML VIAL ONE (06:57)
[2022-12-25] MEDS ORDERED: fentaNYL CITRATE 100 MCG/2 ML VL ONE ×2 (06:58→11:43)
[2022-12-25] MEDS ORDERED: MIDAZOLAM HCL 2MG/2ML 2ml VIAL (1mg/ml) ONE ×2 (06:58→11:43)
[2022-12-25] MEDS ORDERED: diphenhdrAMINE HCL 50 MG/1 ML VL ONE (07:02)
[2022-12-25 07:58] LABS: Band Neutrophils % (manual) 7; Eosinophils % (manual) 10 (0-7); Lymphocytes % (manual) 31 (10.0-50.0); Metamyelocytes % 4; Monocytes % (manual) 3 (0-12)
[2022-12-25] MEDS: ALBUMIN 25% 50 ML IV SCH (08:51)
[2022-12-25] MEDS: PANTOPRAZOLE 40 MG/10 ML VIAL INJ IV SCH (08:51)
[2022-12-25] MEDS: FUROSEMIDE 20 MG/2 ML VIAL IV SCH (08:54)
[2022-12-25] MEDS: FOLIC ACID 1 MG TAB PO SCH (08:54)
[2022-12-25 09:00] VITALS: BP_SYST 151; BP_SYST 85; BP_DIAS 48; BP_DIAS 96
[2022-12-25] MEDS ORDERED: phytonadione 10 MG in SODIUM CHL 0.9% 50 ML IV ONE (11:45)
[2022-12-25] MEDS ORDERED: ONDANSETRON HCL 4 MG/2 ML VIAL IV PRN (11:45)
[2022-12-25] MEDS ORDERED: LIDOCAINE 2% (LOCAL ANESTH.) PF 5ml SDV ONE (12:01)
[2022-12-25] MEDS ORDERED: PROPOFOL 10 MG/ML 20 ML IV ONE (12:01)
[2022-12-25] MEDS ORDERED: ONDANSETRON HCL 4 MG/2 ML VIAL ONE (12:01)
[2022-12-25] MEDS: ALBUMIN 25% 100 ML IV SCH ×2 (13:35→20:50)
[2022-12-25] MEDS: OCTREOTIDE ACETATE 100 MCG/ML VL SUBCUT SCH ×2 (13:57→22:01)
[2022-12-25 16:57] VITALS: BP 93/54
[2022-12-25 22:00] VITALS: BP 92/47
[2022-12-26] MEDS: ALBUMIN 25% 100 ML IV SCH (04:16)
[2022-12-26 05:00] VITALS: BP 96/55
[2022-12-26] MEDS: MIDODRINE HCL 10 MG TAB PO SCH ×3 (06:00→18:01)
[2022-12-26] MEDS: OCTREOTIDE ACETATE 100 MCG/ML VL SUBCUT SCH ×3 (06:01→22:22)
[2022-12-26 07:59] LABS: BUN/Creatinine Ratio 13.3; Calcium 8.4 mg/dL (8.5-10.1); Potassium 4.4 mmol/L (3.5-5.1)
[2022-12-26 09:00] VITALS: BP 86/43
[2022-12-26] MEDS: PANTOPRAZOLE 40 MG/10 ML VIAL INJ IV SCH (09:33)
[2022-12-26] MEDS: FOLIC ACID 1 MG TAB PO SCH (09:33)
[2022-12-26] MEDS: FUROSEMIDE 20 MG/2 ML VIAL IV SCH (09:33)
[2022-12-26 13:00] VITALS: BP 89/45
[2022-12-26] MEDS ORDERED: PANT40TA2 PO (13:28)
[2022-12-26 16:46] VITALS: BP 91/45
[2022-12-26] MEDS ORDERED: MID10T PO (20:47)
[2022-12-26 22:00] VITALS: BP 90/44
[2022-12-27 05:00] VITALS: BP 86/43
[2022-12-27] MEDS: MIDODRINE HCL 10 MG TAB PO SCH ×2 (05:33→12:41)
[2022-12-27] MEDS: OCTREOTIDE ACETATE 100 MCG/ML VL SUBCUT SCH ×2 (05:34→14:53)
[2022-12-27 08:00] VITALS: BP_SYST 89; BP_SYST 95; BP_DIAS 44; BP_DIAS 56
[2022-12-27] MEDS: FUROSEMIDE 20 MG/2 ML VIAL IV SCH (09:52)
[2022-12-27] MEDS: PANTOPRAZOLE 40 MG/10 ML VIAL INJ IV SCH (09:52)
[2022-12-27] MEDS: FOLIC ACID 1 MG TAB PO SCH (09:52)
[2022-12-27 10:22] VITALS: BP 95/56
[2022-12-27 12:00] VITALS: BP 91/48
== END 2022-12-27 16:32 | disposition home health service (06) | DRG 811 ==
LOC: ER 11:33 → EDUNIT# 11:33 → EDBD 11:33 → OVERFLOW 14:30 → WEST WING 21:06
PROVIDERS: ADMIT Nurse Practitioner Family; ATTEND Internal Medicine
PROC: 30233N1 Transfusion of Nonautologous Red Blood Cells into Peripheral Vein, Percutaneous Approach (ICD-10-PCS; principal; 2022-12-21)
PROC: 0DB68ZX Excision of Stomach, Via Natural or Artificial Opening Endoscopic, Diagnostic (ICD-10-PCS; 2022-12-25)
PROC: 0DB88ZX Excision of Small Intestine, Via Natural or Artificial Opening Endoscopic, Diagnostic (ICD-10-PCS; 2022-12-25)
PROC: 0W9G3ZZ Drainage of Peritoneal Cavity, Percutaneous Approach (ICD-10-PCS; 2022-12-26)
DX: D64.9 Anemia, unspecified (principal); E43 Unspecified severe protein-calorie malnutrition; N17.0 Acute kidney failure with tubular necrosis; N39.0 Urinary tract infection, site not specified; N18.4 Chronic kidney disease, stage 4 (severe); Z68.41 Body mass index [BMI] 40.0-44.9, adult; R18.8 Other ascites; I12.9 Hypertensive chronic kidney disease with stage 1 through stage 4 chronic kidney disease, or unspecified chronic kidney disease; K44.9 Diaphragmatic hernia without obstruction or gangrene; K74.60 Unspecified cirrhosis of liver; Z20.822 Contact with and (suspected) exposure to COVID-19; F17.210 Nicotine dependence, cigarettes, uncomplicated; K76.82 Hepatic encephalopathy; Z88.8 Allergy status to other drugs, medicaments and biological substances; Z98.84 Bariatric surgery status; Z83.3 Family history of diabetes mellitus; Z82.49 Family history of ischemic heart disease and other diseases of the circulatory system; Z90.49 Acquired absence of other specified parts of digestive tract
CPT/HCPCS: 36415; 36430; 71045; 76705; 76942; 80048; 80053; 81001; 81003; 81015; 82140; 82570; 82607; 82746; 83540; 83550; 83986; 84100; 84156; 84300; 84443; 85007; 85014; 85018; 85025; 85027; 85610; 85730; 86850; 86900; 86901; 86920; 87081; 87205; 87426; 89051; 93005; 96365; 96366; 96375; 97110; 97116; 97163; 97530; C9113; G0378; J0696; J2001; J2250; J2405; J2704; J3430; P9047